=== PATIENT | female | born 1975 | race Caucasian/White ===

== ENCOUNTER 2016-12-12 19:22 | Emergency (ER) | payer BC ==
[2016-12-12 21:23] VITALS: BP 113/78
--- NOTE | 2016-12-12 21:57 | UC ---
Skin Complaint HPI - HPI Summary HPI Summary: 41 female presents to with complaints of rash under left nare that began one week ago. Patient is known to get similar infection when she gets sick or has allergy problems and has been using bactroban without relief. Began in right nare and then resolved after bactroban however left nare the bactroban isn't working. Admits to discharge when rash pustules pop and pruritis. Denies fever or rash elsewhere. No other complaints otherwise. States she may have a yeast infection, although she has never gotten one from topical antibiotic in the past. Would like diflucan incase as she knows when she has one. No other PMHx. - History of Current Complaint Chief Complaint: UCSkin Time Seen by Provider: 12/12/16 21:35 Stated Complaint: NASAL ISSUE Hx Obtained From: Patient Hx Last Menstrual Period: 12/12/16 Onset/Duration: Sudden Onset, Lasting Weeks - 1, Still Present Skin Exposure Onset/Duration: Weeks Ago - 1 Onset Severity: Mild Current Severity: Mild Pain Intensity: 0 Pain Scale Used: 0-10 Numeric Location: Nose - left nare Character: Swelling, Pruritus, Redness Aggravating: Nothing Alleviating: Nothing Associated Signs & Symptoms: Positive: Rash - explained in HPI above - Allergy/Home Medications Allergies/Adverse Reactions: Allergies Allergy/AdvReac Type Severity Reaction Status Date / Time antibiotics cause yeast AdvReac See Comment Uncoded 12/12/16 21:17 infections Home Medications: Home Medications Lactobacillus [Probiotic] 1 cap PO DAILY 12/12/16 [History Confirmed 12/12/16] Multivitamins/Minerals TAB* [Thera M Plus TAB*] 1 tab PO DAILY 12/12/16 [ History Confirmed 12/12/16] Review of Systems Constitutional: Negative Skin: Rash Eyes: Negative ENT: Negative Respiratory: Negative Cardiovascular: Negative Genitourinary: Other - possible yeast infection, itching Neurological: Negative All Other Systems Reviewed And Are Negative: Yes PMH/Surg Hx/FS Hx/Imm Hx - Additional Past Medical History Additional PMH: denies DM HTN and asthma - Surgical History Surgical History: None - Family History Known Family History: Positive: None - Social History Alcohol Use: Daily Alcohol Amount: one wine / tavares Substance Use Type: None Smoking Status (MU): Never Smoked Tobacco - Immunization History Most Recent Influenza Vaccination: 2012 Physical Exam Triage Information Reviewed: Yes Appearance: Well-Appearing, No Pain Distress, Well-Nourished Vital Signs: Initial Vital Signs Temp 98.3 F 12/12/16 21:18 Pulse 78 12/12/16 21:18 Resp 16 12/12/16 21:18 BP 113/78 12/12/16 21:18 Pulse Ox 98 12/12/16 21:18 Vital Signs Reviewed: Yes Eyes: Positive: Conjunctiva Clear ENT: Positive: Normal ENT inspection, Hearing grossly normal, Pharynx normal, TMs normal Neck: Positive: Supple, Nontender, No Lymphadenopathy Respiratory: Positive: Chest non-tender, Lungs clear, Normal breath sounds, No respiratory distress, No accessory muscle use. Negative: Respiratory distress, Decreased breath sounds, Stridor, Wheezing Cardiovascular: Positive: RRR, No Murmur, Pulses Normal, Brisk Capillary Refill Musculoskeletal: Positive: Strength Intact, ROM Intact Neurological: Positive: Alert, Muscle Tone Normal Skin: Positive: rashes - pustules and erythema under left nare with mucpurulent pustules. rest of skin exam normal Course/Dx - Course Course Of Treatment: appears to be suffering from a skin infection without relief from bactroban. will try oral bactrim. no other concern or complaints. wound culture obtained. will wait for culture results. follow up pcp. aware of worsening signs and symptoms. will be given diflucan for candidiasis. - Differential Diagnoses - Skin Complaint Differential Diagnoses: Cellulitis, Local Allergic Reaction, MRSA, Urticaria - Diagnoses Provider Diagnoses: staph infection of left nare Discharge - Discharge Plan Condition: Stable Disposition: HOME Patient Education Materials: MRSA (Methicillin-Resistant Staphylococcus Aureus ) (ED), Cellulitis (ED), Impetigo (ED) Referrals: Reji Sutton MD [Primary Care Provider] - Additional Instructions: Take prescribed medication as directed to help with infection. Diflucan for yeast infection. Eat polish yogurt and take probiotic. Drink plenty of fluids. Continue bactroban ointment if desired. Follow up with PCP. If symptoms worsen or new symptoms develop please seek medical attention promptly.
== END 2016-12-12 22:09 | disposition home or self-care (01) ==
LOC: UCCORT 19:22
DX: L08.9 Local infection of the skin and subcutaneous tissue, unspecified (principal); B95.8 Unspecified staphylococcus as the cause of diseases classified elsewhere; Z88.1 Allergy status to other antibiotic agents
CPT/HCPCS: 87070; 87205; 87640; 87641; 99212; G0463

== ENCOUNTER 2017-02-16 17:25 | Emergency (ER) | payer BC ==
[2017-02-16 18:56] VITALS: BP 126/73
--- NOTE | 2017-02-16 19:24 | UC ---
Throat Pain/Nasal Andrea HPI - HPI Summary HPI Summary: 41 y/o female presents to the urgent care c/o sore throat and sinus pressure and pain for the past 5 days. Pt reports post nasal drips with mild dry cough. Pain with swallowing is 4/10. Nasal discharge is clear. Pt denies fever, SOB, chest pain, BARRETO, abdominal pain, N/V/D. - History of Current Complaint Chief Complaint: UCGeneralIllness Stated Complaint: ST Time Seen by Provider: 02/16/17 19:00 Hx Obtained From: Patient Hx Last Menstrual Period: 01/30/17 ?: No Onset/Duration: Gradual Onset, Lasting Days - 5 days, Still Present Severity: Moderate Pain Intensity: 4 Pain Scale Used: 0-10 Numeric Cough: Nonproductive - dry Associated Signs & Symptoms: Positive: Dysphagia, Nasal Discharge - clear discharge. Negative: Fever - Epiglottits Risk Factors Epiglottis Risk Factors: Negative - Allergies/Home Medications Allergies/Adverse Reactions: Allergies Allergy/AdvReac Type Severity Reaction Status Date / Time antibiotics cause yeast AdvReac See Comment Uncoded 02/16/17 18:56 infections PMH/Surg Hx/FS Hx/Imm Hx Previously Healthy: Yes - Pt dneies PMHX - Surgical History Surgical History: None - Family History Known Family History: Positive: None - Pt denies FMHX - Social History Occupation: Employed Full-time Lives: With Family Alcohol Use: Occasionally Alcohol Amount: one wine / tavares Substance Use Type: None Smoking Status (MU): Never Smoked Tobacco - Immunization History Most Recent Influenza Vaccination: 2012 Review of Systems Constitutional: Negative Skin: Negative Eyes: Negative ENT: Sore Throat, Nasal Discharge, Sinus Congestion Respiratory: Cough - dry Cardiovascular: Negative Gastrointestinal: Negative Genitourinary: Negative Motor: Negative Neurovascular: Negative Musculoskeletal: Negative Neurological: Negative Psychological: Negative Is Patient Immunocompromised?: No All Other Systems Reviewed And Are Negative: Yes Physical Exam Triage Information Reviewed: Yes Vital Signs: Initial Vital Signs Temp 98.6 F 02/16/17 18:52 Pulse 73 02/16/17 18:52 Resp 12 02/16/17 18:52 BP 126/73 02/16/17 18:52 Pulse Ox 99 02/16/17 18:52 - Additional Comments VITAL SIGNS: Reviewed. GENERAL: Patient is a well developed and nourished who is sitting comfortable in the examining table. Patient is not in any acute respiratory distress. HEAD AND FACE: No signs of trauma. No ecchymosis, hematomas or skull depressions. No sinus tenderness. EYES: PERRLA, EOMI x 2, No injected conjunctiva, no nystagmus. No photophobia. EARS: Hearing grossly intact. Ear canals and tympanic membranes are within normal limits. Nose: erythematous and edematous nasal mucosa w/ nasal discharge MOUTH: Positive pharynx with erythema, exudates, no palatal petechiae. B/L tonsillar enlargement with exudate. Uvula in midline. NECK: Supple, trachea is midline, Positive anterior cervical lymphadenopathy, no JVD, no carotid bruit, no c-spine tenderness, neck with full ROM. No meningeal signs, no Kernig's or brudzinskis signs. CHEST: Symmetric, no tenderness at palpation LUNGS: Clear to auscultation bilaterally. No wheezing or crackles. CVS: Regular rate and rhythm, S1 and S2 present, no murmurs or gallops appreciated. ABDOMEN: Soft, non-tender. No signs of distention. No rebound no guarding, and no masses palpated. Bowel sounds are normal. EXTREMITIES: FROM in all major joints, no edema, no cyanosis or clubbing. NEURO: Alert and oriented x 3. No acute neurological deficits. Speech is normal and follows commands. SKIN: Dry and warm Throat Pain/Nasal Course/Dx - Course Course Of Treatment: 41 y/o female presents to the urgent care c/o sore throat and sinus pressure and pain for the past 5 days. Pt reports post nasal drips with mild dry cough. Pain with swallowing is 4/10. Nasal discharge is clear. Pt denies fever, SOB, chest pain, BARRETO, abdominal pain, N/V/D. Hx obtained. Pt with upper respiratory infection on examination. Rapid strep ordered, result: negative. Pt Advised to take ibuprofen PO to alleviates symptoms of pain and swelling. Advised on hand washing to avoid spreading. Pt advised to rest, eat well and avoid strenuous exercise. If symptoms do not improve or worsen advised to return to the urgent care or f/u with her PCP for further evaluation and treatment. Pt understood and agreed with plan of care - Differential Dx/Diagnosis Differential Diagnosis/HQI/PQRI: Influenza, Laryngitis, Otitis Media, Pharyngitis, Sinusitis, Tonsillitis, URI Provider Diagnoses: 1- acute upper respiratory infection Discharge - Discharge Plan Condition: Stable Disposition: HOME Patient Education Materials: Upper Respiratory Infection (ED) Referrals: Reji Sutton MD [Primary Care Provider] - If Needed Additional Instructions: 1-Please take Tylenol or ibuprofen PO q6-8hrs prn OTC as instructed after meals to alleviate pain and swelling. Increase fluid intake, eat well, rest and avoid strenuous exercise 2-Apply saline drops on each nostril and Flonase nasal spray once a day to help clear ypour sinuses 3-If symptoms do not improve or worsen please return to the urgent care or f/u with your PCP for further evaluation and treatment.
== END 2017-02-16 20:17 | disposition home or self-care (01) ==
LOC: UCCORT 17:25
DX: J06.9 Acute upper respiratory infection, unspecified (principal); Z88.1 Allergy status to other antibiotic agents
CPT/HCPCS: 87651; 99211; G0463

== ENCOUNTER 2018-08-25 14:42 | Emergency (ER) | payer BC ==
[2018-08-25 15:10] VITALS: BP 117/63
--- NOTE | 2018-08-25 15:25 | ED ---
Throat Pain/Nasal Congestion - HPI Summary HPI Summary: pt presents to the Ed for evaluation of her right eye redness and swelling to her upper eyelid. she has noticed it for several days. she states that it is getting worse and she is worried because she is in a wedding on Saturday and she was hoping to be better for pictures. she denies any n/v/fever or chills. she denies any visual disturbances. - History of Current Complaint Chief Complaint: UCEye Hx Obtained From: Patient Onset/Duration: Gradual Onset Severity: Mild - Allergies/Home Medications Allergies/Adverse Reactions: Allergies Allergy/AdvReac Type Severity Reaction Status Date / Time antibiotics cause yeast AdvReac See Comment Uncoded 08/25/18 15:12 infections PMH/Surg Hx/FS Hx/Imm Hx Previously Healthy: Yes Infectious Disease History: No Infectious Disease History: Denies: Traveled Outside the [place] in Last 30 Days - Family History Known Family History: Positive: None - Pt denies FMHX - Social History Alcohol Use: Occasionally Alcohol Amount: one wine / tavares Substance Use Type: Reports: None Smoking Status (MU): Never Smoked Tobacco Review of Systems Constitutional: Negative Positive: Erythema - to right upper eyelid ENT: Negative Cardiovascular: Negative Respiratory: Negative Gastrointestinal: Negative Genitourinary: Negative Musculoskeletal: Negative Skin: Negative Neurological: Negative Psychological: Normal All Other Systems Reviewed And Are Negative: No Physical Exam Triage Information Reviewed: Yes Vital Signs On Initial Exam: Initial Vitals Temp Pulse Resp BP Pulse Ox 98 F 68 16 117/63 99 08/25/18 15:05 08/25/18 15:05 08/25/18 15:05 08/25/18 15:05 08/25/18 15:05 Vital Signs Reviewed: Yes Appearance: Positive: Well-Appearing, No Pain Distress, Well-Nourished Skin: Positive: Warm, Dry Eyes: Positive: Other: - stye noticed right upper eyelid. the right eyelid is swollen. her pupils is round and equal. her extraocular muscles are intact. ENT: Positive: Normal ENT inspection, Hearing grossly normal, Pharynx normal Neck: Positive: Supple, Nontender Respiratory/Lung Sounds: Positive: Clear to Auscultation, Breath Sounds Present Cardiovascular: Positive: Normal, RRR Abdomen Description: Positive: Nontender, Soft Bowel Sounds: Positive: Present Musculoskeletal: Positive: Normal, Strength/ROM Intact Neurological: Positive: Normal, Sensory/Motor Intact, Alert, Oriented to Person Place, Time, CN Intact II-III Psychiatric: Positive: Normal AVPU Assessment: Alert Diagnostics - Vital Signs Vital Signs Temp Pulse Resp BP Pulse Ox 08/25/18 15:05 98 F 68 16 117/63 99 - Laboratory Lab Statement: Any lab studies that have been ordered have been reviewed, and results considered in the medical decision making process. EENT Course/Dx - Course Course Of Treatment: pt has a stye noted to her right upper eyelid. she was gvien a rx for erythromycin opth ointment and keflex. she was also given a rx for decadron. she is really hoping that it gets better for saturday. In an effort to expedite recovery and decreased swelling, I rx'ed prednisone. pt encouraged to f/u with pcp. she was further instructed to continue to take her zyrtec. she states that benadryl makes her act funny. she was further encouraged to apply ice to help with any swelling. - Diagnoses Provider Diagnoses: Stye Discharge - Sign-Out/Discharge Documenting (check all that apply): Patient Departure All imaging exams completed and their final reports reviewed: No Studies - Discharge Plan Condition: Stable Disposition: HOME Prescriptions: Cephalexin CAP* [Keflex CAP*] 500 mg PO TID #21 cap Erythromycin OPTH OINT* [Erythromycin 0.5% OPTH OINT*] 1 applic RIGHT EYE TID # 1 ophth.oint Fluconazole 100 MG TAB* [Diflucan 100 MG TAB*] 100 mg PO DAILY #1 tab predniSONE [Prednisone 20 MG TAB] 40 mg PO DAILY #6 tablet Patient Education Materials: Ben (ED) Referrals: Reji Sutton MD [Primary Care Provider] - Additional Instructions: Please follow up with your primary care physician. return if worse or any new symptoms. It is important to take all medications as instructed. If you feel that you are getting a yeast infection from the antibiotics, I prescribed you diflucan. Please continue to do warm compresses and motrin as well. - Billing Disposition and Condition Condition: STABLE Disposition: Home
== END 2018-08-25 15:30 | disposition home or self-care (01) ==
LOC: UCCORT 14:42
DX: H00.011 Hordeolum externum right upper eyelid (principal)
CPT/HCPCS: 99212; G0463

== ENCOUNTER 2018-10-30 14:34 | Emergency (ER) | payer BC ==
[2018-10-30 15:05] VITALS: BP 115/75
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
== END 2018-10-30 15:50 | disposition home or self-care (01) ==
LOC: UCCORT 14:34
DX: S60.512A Abrasion of left hand, initial encounter (principal); V19.3XXA Pedal cyclist (driver) (passenger) injured in unspecified nontraffic accident, initial encounter; Y93.55 Activity, bike riding; Y92.9 Unspecified place or not applicable
CPT/HCPCS: 99212; G0463